=== PATIENT | male | born 1940 | race Caucasian/White ===

== ENCOUNTER 2022-06-17 16:21 | Inpatient (IN) | payer MEDICARE, SELFPAY ==
[2022-06-17] VITALS (9 sets, daily range): BP systolic 140–160; BP diastolic 36–79; PULSE 32–96; RESP 14–19; TEMP 36.6–36.8; O2SAT 95–100; BMI 26.4
--- NOTE | ~2022-06-17 | XR_ITS ---
EXAMINATION: XR chest 1V portable INDICATION: Pacemaker insertion TECHNIQUE: Portable AP chest at 1529 hours COMPARISON: 06/17/2022 FINDINGS: There has been interval insertion of a dual lead pacemaker into the left chest wall which e nds with its leads in expected positions. No pleural effusion or pneumothorax. There is mild atelecta sis of the left lung base. The cardiomediastinal silhouette is normal. IMPRESSION: 1. Left-sided pacemaker insertion without pneumothorax. Reviewed, dictated and finalized at location B.
--- NOTE | ~2022-06-17 | XR_ITS ---
EXAMINATION: XR chest 1V portable DATE: 06/17/2022 17:09 INDICATION: Bradycardia, shortness of breath and dizziness TECHNIQUE: frontal view of the chest was obtained. COMPARISON: None FINDINGS: Lordotic position with slight rightward rotation of the patient. No focal airspace opacities, pulmona ry edema, pleural effusion or pneumothorax. The cardiomediastinal silhouette is normal. Defibrillator pads project over the right upper chest and along the lateral left lower chest. IMPRESSION: 1. No acute cardiopulmonary disease. Reviewed, dictated and finalized at location A.
--- NOTE | ~2022-06-17 | XR_ITS ---
EXAMINATION: XR chest 2V DATE: 06/20/2022 14:39 INDICATION: Pacemaker insertion TECHNIQUE: Frontal and lateral views of the chest are obtained COMPARISON: 06/19/2022 FINDINGS: The lungs are free of acute opacities. No pleural effusion or pneumothorax. The cardiomedia stinal silhouette is normal. There is mild thoracic spondylosis. A dual-lead cardiac pacemaker of the left chest wall ends with leads in expected locations. IMPRESSION: 1. No acute cardiopulmonary abnormality. Reviewed, dictated and finalized at location L.
--- NOTE | 2022-06-17 16:42 | ECG_ITS ---
Measurements Intervals [place] Rate: 36 P: 92 [place]: 84 QRS: 76 QRSD: 133 T: -53 QT: 506 QTc: 393 Interpretive Statements 2:1 AV BLOCK INTRAVENTRICULAR CONDUCTION DELAY [130+ ms QRS DURATION] NO PREVIOUS ECG AVAILABLE FOR COMPARISON Electronically Signed On 06-18-2022 15:05:26 CDT by Leif Mckay M.D.
[2022-06-17 16:52] LABS: Basophils Absolute Auto 0.1 K/mm3 (0.0-0.1); Eosinophils Absolute Auto 0.2 K/mm3 (0-0.3); Eosinophils Percent Auto 3.5 % (0-4.4); Hematocrit 43.1 % (42.0-52.0); Immature Granulocyte Absolute 0.02 K/mm3 (0.00-0.031); Immature Granulocyte Percent A 0.3 % (0-0.5); Lymphocytes Absolute Auto 0.99 K/mm3 (0.9-3.2); Lymphocytes Percent Auto 16.6 % (18.3-44.2); Mean Corpuscular HGB Conc 32.5 g/dl (32-36); Mean Corpuscular Hemoglobin 30.7 pg (26-34); Mean Corpuscular Volume 94.5 fl (80-100); Mean Platelet Volume 10.7 fl (7.4-10.4); Monocytes Absolute Auto 0.6 K/mm3 (0.1-0.6); Monocytes Percent Auto 9.9 % (2.6-8.5); Neutrophils Absolute Auto 4.1 K/mm3 (1.3-6.7); Neutrophils Percent Auto 68.7 % (45.5-73.1); Platelet Count Result 146 k/mm3 (150-375); Red Blood Count 4.56 M/mm3 (4.6-6.20); Red Cell Distribution Width 13.9 % (11.5-14.5)
[2022-06-17 17:07] LABS: Alanine Aminotransferase 46 U/L (6-50); Albumin Level 3.9 g/dL (3.5-5.1); Alkaline Phosphatase 42 U/L (38-126); Anion Gap 5 mmol/L (8-16); Aspartate Amino Transferase 47 U/L (17-59); Bilirubin,Total 0.6 mg/dL (0.2-1.3); Blood Urea Nitrogen 33 mg/dL (9-20); Carbon Dioxide 30 mmol/L (22-30); Chloride 108 mmol/L (98-107); Estimated CRCL calculation 37 ml/min; Estimated Glomerular Filt Rate 53; Glucose 97 mg/dL (65-110); Lipase 179 U/L (23-300); Potassium 4.4 mmol/L (3.4-5.0); Sodium 143 mmol/L (137-145)
[2022-06-17 17:11] LABS: INR 1.1; Prothrombin Time 13.8 Seconds (11.1-14.7)
[2022-06-17 17:12] LABS: Partial Thromboplastin Time 24.5 SECONDS (22.3-36.8)
--- NOTE | 2022-06-17 17:16 | ED.ARRPALP ---
HPI - Arrhythmia/Palpitations General Chief Complaint: Arrhythmia/Palpitations Stated Complaint: slow HR Time Seen by Provider: 06/17/22 17:07 Source: patient and RN notes reviewed Mode of arrival: ambulatory Limitations: no limitations History of Present Illness HPI narrative: This is an 82 year old male with history of hypertension who presents for evaluation of bradycardia. He went to be evaluated by his PCP for dizziness and fatigue for past 24-48 hours . He reports he is dizzy with standing. He was found to have low HR so he was sent to ER. He denies chest pain, sob, nausea or vomting. He denies cardiac history. He denies change in medications. Related Data Home Medications Medication Instructions Recorded Confirmed aspirin 81 mg chewable tablet 81 mg PO DAILY 06/17/22 06/17/22 bupropion HCl 150 mg 24 hr tablet, 150 mg PO DAILY 06/17/22 06/17/22 extended release escitalopram oxalate 20 mg tablet 20 mg PO DAILY 06/17/22 06/17/22 hydrochlorothiazide 25 mg tablet 25 mg PO DAILY 06/17/22 06/17/22 meloxicam 15 mg tablet 15 mg PO DAILY PRN Pain 06/17/22 06/17/22 ramipril 10 mg capsule 10 mg PO DAILY 06/17/22 06/17/22 Allergies Allergy/AdvReac Type Severity Reaction Status Date / Time No Known Allergies Allergy Mild Verified 06/17/22 16:41 Review of Systems Constitutional: Constitutional: Reports weakness Cardiovascular: Cardiovascular: Denies syncope, Denies rapid heart rate, Denies irregular heart rhythm, Denies leg edema and Denies dyspnea Respiratory: Respiratory: Denies chest congestion, Denies hemoptysis, Denies excessive phlegm production and Denies dyspnea Gastrointestinal: Gastrointestinal: Denies abdominal pain, Denies hematochezia, Denies diarrhea and Denies vomiting Genitourinary: Genitourinary: Denies hematuria, Denies dysuria, Denies penile discharge and Denies testicular pain Musculoskeletal: Musculoskeletal: Denies joint swelling, Denies loss of height and Denies muscle weakness Neurologic: Reports dizziness, Denies syncope, Denies focal weakness and Denies weakness PMFSH Past Medical History Medical History Depression Essential hypertension Osteoarthritis Surgical History Surgical History History of right inguinal hernia repair Hx of tonsillectomy Family History Family History Other No significant family history Social History Social History Social History: The patient lives with his and is independent in all activities of daily living. They had been since 1962. They based 2 daughters. He smoked a pack of cigarettes per day but quit in 1972. He drinks 2 or 3 beers couple of times a week. Code status: Full code Surrogate decision maker: Smoking packs per day: 1 Smoking cigarettes per day: 20.0 Years smoked: 15 Smoking pack-years: 15.00 Smoking status: Former smoker Alcohol intake: current Drinks per week: 6 Alcohol use details: A couple of beers 2 or 3 times a week Substance use: never Lack of Transportation: No Lack of Food: Never True Current Housing: I Have Housing Concerned About Future Housing: No Difficulty Paying Gas/Electric Bills: No Difficulty Paying for Meds: No Currently Unemployed: No Education: Master's Degree or Higher Difficulty w/ Childcare or Family Care: No Spiritual care concerns: No Exam Const: General: no acute distress and alert Nutritional Appearance: well nourished Orientation/consciousness: patient oriented x3 HENMT: Face and sinus: normal facial exam Mouth: Yes Normal oral and palatal mucosa present Throat: posterior oropharynx normal and uvula midline Eyes: EOM: EOMs intact bilaterally Chest: Chest palpation & inspection: normal inspection of the
[2022-06-17 17:18] LABS: Troponin I < 0.012 ng/mL (0.000-0.034)
[2022-06-17] MEDS: ATROPINE SULFATE 1 MG/10 ML SYRINGE 0.5 MG IV PUSH (17:42)
--- NOTE | 2022-06-17 19:00 | ADMGEN ---
This patient, Jackeline Squires, was admitted to Intensive Care Unit-5. Patient/family oriented to hospital policies and general routines including ID bracelet, bed and alarms, visiting hours, pain management, procedures, bathroom and other care routines, personal items, smoking policy, room service/diet, and visiting hours. Information on how to activate the Rapid Response Team has been discussed. Patient/Family are encouraged to report perceived risks to care and to ask questions if they do not understand what they are told or what they should do.
--- NOTE | 2022-06-17 19:13 | ECG_ITS ---
Measurements Intervals [place] Rate: 31 P: 62 [place]: 194 QRS: -26 QRSD: 142 T: 75 QT: 520 QTc: 377 Interpretive Statements HIGH-DEGREE AV BLOCK LEFT BUNDLE BRANCH BLOCK [120+ ms QRS DURATION, 80+ ms Q/S IN V1/V2, 85+ ms R IN I/aVL/V5/V6] INTERPRETATION BASED ON A DEFAULT AGE OF 40 YEARS COMPARED TO ECG 06/17/2022 16:36:10 NO SIGNIFICANT CHANGES Electronically Signed On 06-18-2022 15:54:21 CDT by Leif Mckay M.D.
[2022-06-17 20:24] LABS: Troponin I < 0.012 ng/mL (0.000-0.034)
--- NOTE | 2022-06-17 21:04 | PM.IMHP ---
H&P: HPI History of Present Illness Date/Time: 06/17/22 21:04 Chief Complaint: Tired and dizzy Narrative: 82-year-old male with a past medical history of essential hypertension and depression who presented to the ER from his primary care physician's office due to bradycardia. The patient had chief complaint of feeling tired and dizzy since the . He reports that he and his went out shopping and he noticed that it took him more effort than usual to get her electric scooter off of the car. He felt tired enough that they finished shopping early and they were going to go home and take her usual nap. However they stopped at a flea market before they got home and he suddenly felt lightheaded and thought that he was going to pass out. He initially stated that he was dizzy but denies any true vertiginous symptoms. He states that he has never had symptoms like this before. He denies any chest pain, shortness of breath, orthopnea or palpitations. He went to see his primary care physician in they did an EKG and he directed him to go to the ER because his EKG was concerning for high-degree heart block. He is not on any AV lucius blocking agents. He is EKG in the ER demonstrated a third-degree heart block. Patient was subsequently admitted to the ICU for close monitoring and has external pacing pads in place. His heart rate is in the low 30s but blood pressures are stable. Besides feeling fatigued the patient is completely asymptomatic. While I was in the room the patient did briefly dropped down to a heart rate of 27. Review of Systems Review of Systems: 12 systems were reviewed with pertinent positives and negatives per HPI. Except as documented in the HPI, all other systems were reviewed and are negative. [facility] Past Medical History Medical History (Updated 06/17/22 @ 22:25 by Holley Fletcher DO) Depression Essential hypertension Osteoarthritis Surgical History Surgical History (Updated 06/17/22 @ 22:25 by Holley Fletcher DO) History of right inguinal hernia repair Hx of tonsillectomy Family History Family History Other No significant family history Social History Social History (Updated 06/17/22 @ 22:38 by Holley Fletcher DO) Social History: The patient lives with his and is independent in all activities of daily living. They had been since 1962. They based 2 daughters. He smoked a pack of cigarettes per day but quit in 1972. He drinks 2 or 3 beers couple of times a week. Code status: Full code Surrogate decision maker: Smoking packs per day: 1 Smoking cigarettes per day: 20.0 Years smoked: 15 Smoking pack-years: 15.00 Smoking status: Former smoker Alcohol intake: current Drinks per week: 6 Alcohol use details: A couple of beers 2 or 3 times a week Substance use: never Lack of Transportation: No Lack of Food: Never True Current Housing: I Have Housing Concerned About Future Housing: No Difficulty Paying Gas/Electric Bills: No Difficulty Paying for Meds: No Currently Unemployed: No Education: Master's Degree or Higher Difficulty w/ Childcare or Family Care: No Spiritual care concerns: No Meds Home Medications and Allergies Home Medications Medication Instructions Recorded Confirmed Type aspirin 81 mg chewable tablet 81 mg PO DAILY 06/17/22 06/17/22 History bupropion HCl 150 mg 24 hr tablet, 150 mg PO DAILY 06/17/22 06/17/22 History extended release escitalopram oxalate 20 mg tablet 20 mg PO DAILY 06/17/22 06/17/22 History hydrochlorothiazide 25 mg tablet 25 mg PO DAILY 06/17/22 06/17/22 History meloxicam 15 mg tablet 15 mg PO DAILY PRN Pain 06/17/22 06/17/22 History ramipril 10 mg capsule 10 mg PO DAILY 06/17/22 06/17/22 History Allergies Allergy/AdvReac Type Severity Reaction Status Date / Time No Known Allergies Allergy Mild Verified 06/17/22 16:41 Vital
[2022-06-17 23:09] LABS: Troponin I < 0.012 ng/mL (0.000-0.034)
[2022-06-18] VITALS (15 sets, daily range): BP systolic 114–154; BP diastolic 34–116; PULSE 28–42; RESP 10–21; TEMP 36.6–36.9; O2SAT 94–100
--- NOTE | 2022-06-18 | ECHO_ITS ---
Patient Info Name: Jackeline Squires Age: 82 years : 1940 Gender: Male Ht: 67 in Wt: 169 lbs BSA: 1.92 m2 HR: 30 bpm BP: 146 / 51 mmHg Heart Rhythm: Bradycardia Technical Quality: Fair Exam Date: 06/18/2022 7:49 AM Exam Location: [facility] Patient Status: Outpatient Admit Date: 06/17/2022 Staff Ordering Physician: Holley Fletcher DO Wire Splicer: Olivia Reyes RDCS Attending Provider: Beata Wick DO Referring Physician: Chance SORTO; Exam Type: CA echo dop color flow w con Study Info Indications - Third-degree heart block Complete two-dimensional, color flow and Doppler transthoracic echocardiogram is performed with contrast to opacify the left ventricle and to improve the deliniation of the left ventricle endocardial borders. Contrast/Agitated Saline Contrast/Ag. Saline: Definity Amount: 3.00 ml Administered By: Olivia Reyes RDCS Existing IV Access: Yes IV Access Condition: patent with no signs of infiltration Summary 1. Left ventricular chamber dimension is normal. 2. Left ventricular systolic function is normal, estimated at 60-65%. 3. The left ventricular diastolic function is grade I diastolic dysfunction. 4. Right ventricular systolic function is normal. 5. There is mild aortic valve sclerosis. 6. There is mild aortic valve regurgitation. 7. There is mild to moderate mitral valve regurgitation. 8. There is moderate tricuspid valve regurgitation. 9. There is mild pulmonic regurgitation. 10. Pulmonary hypertension, estimated pulmonary arterial systolic pressure is 53 mmHg. Left Ventricle Left ventricular chamber dimension is normal. Left ventricular systolic function is normal, estimated at 60-65%. There is no increased left ventricular wall thickness. The left ventricular diastolic function is grade I diastolic dysfunction. Right Ventricle Right ventricular chamber dimension is normal. Right ventricular systolic function is normal. Left Atria Left atrial chamber dimension is normal. Right Atria Right atrial chamber dimension is normal. Atrial Septum Intact interatrial septum visualized by color flow imaging. Aortic Valve The aortic valve is trileaflet. There is mild aortic valve sclerosis. There is no aortic valve stenosis. There is mild aortic valve regurgitation. Pulmonic Valve The pulmonic valve is not well visualized. There is mild pulmonic regurgitation. Mitral Valve The mitral valve has normal leaflets. There is no mitral valve stenosis. There is mild to moderate mitral valve regurgitation. Tricuspid Valve There is moderate tricuspid valve regurgitation. Pulmonary hypertension, estimated pulmonary arterial systolic pressure is 53 mmHg. Pericardium/Pleural The pericardium appears epicardial fat pad. Inferior Vena Cava Dilated inferior vena cava with >50% collapse upon inspiration consistent with elevated right atrial pressure, 8 mmHg. Aorta The aortic root size at the sinus of Valsalva is normal. Left Ventricular Outflow Tract Name Value Normal LVOT 2D LVOT Diameter 1.89 cm LVOT Doppler
[2022-06-18] MEDS: PERFLUTREN LIPID MICROSPHERES 1.5 ML VIAL DILUTED TO 10 ML TOTAL VOLUME IV PUSH (08:00)
--- NOTE | 2022-06-18 08:33 | WPDCNINT ---
Assessment and Plan Assessment and plan (1) AV heart block: Code(s): I44.30 - Unspecified atrioventricular block Status: Acute Assessment and Plan: EKG reviewed and patient appears to have second-degree type 2 heart block with every 2nd beat not conducting.. Clearly he presented with symptoms but his blood pressure is adequate at this time. Continue ICU school bus monitor. Transcutaneous pacing pads are in place but he has not required any pacing till now. Electrolytes were unremarkable and he had no response to atropine Cardiology has been consulted and plan to place a pacemaker Troponins negative TSH normal Echo is ordered (2) Essential hypertension: Code(s): I10 - Essential (primary) hypertension Status: Acute Assessment and Plan: Continue ramipril. Add p.r.n. hydralazine Resume hydrochlorothiazide from tomorrow Plan DVT prophylaxis - SCDs Nutrition -NPO Code Status - Full Code Coil Cutter Consult Note Consult date: 06/18/22 Reason for consult: Bradycardia, heart block HPI: Jackeline Squires is a 82 year old male with a past medical history of essential hypertension and depression who presented to the ER yesterday from his primary care physician's office due to bradycardia.? The patient had chief complaint of feeling tired and dizzy since the 06/16.? He reported that he and his went out shopping and he noticed that it took him more effort than usual to get her electric scooter off of the car.? He felt tired enough that they finished shopping early and they were going to go home and take her usual nap.? He also had episode where he he suddenly felt lightheaded and thought that he was going to pass out.? He denied any chest pain, shortness of breath, orthopnea or palpitations.? He went to see his primary care physician in they did an EKG and he directed him to go to the ER because his EKG was concerning for high-degree heart block.? He is not on any AV lucius blocking agents.? He is EKG in the ER demonstrated a third-degree heart block.? Patient was subsequently admitted to the ICU for close monitoring and has external pacing pads in place.? Although he was bradycardic his blood pressure was elevated and he did not require any pacing. Cardiology was consulted At this time patient states that he does not have any symptoms at this time and feels fine while in bed. He confirmed similar history to me and stated that he had only 1 episode where he felt he was going to pass and was been feeling weak and tired for last couple of days. Denies any chest pain shortness of breath nausea vomiting abdominal pain blurring or loss of vision. All other systems were reviewed and were negative Review of Systems Review of Systems: All systems reviewed & are unremarkable except as noted in HPI and below (HPI) [facility] Past Medical History Medical History Depression Essential hypertension Osteoarthritis Surgical History Surgical History History of right inguinal hernia repair Hx of tonsillectomy Family History Family History Other No significant family history Social History Social History Social History: The patient lives with his and is independent in all activities of daily living. They had been since 1962. They based 2 daughters. He smoked a pack of cigarettes per day but quit in 1972. He drinks 2 or 3 beers couple of times a week. Code status: Full code Surrogate decision maker: Smoking packs per day: 1 Smoking cigarettes per day: 20.0 Years smoked: 15 Smoking pack-years: 15.00 Smoking status: Former smoker Alcohol intake: current Drinks per week: 6 Alcohol use details: A couple of beers 2 or 3 times a week Substance use: never Lack of T
--- NOTE | 2022-06-18 08:41 | IVDEFINITY ---
Prior to administration of IV Definity the patient was educated on the risks and benefits of the imaging enhancing agent including potential adverse side effects. The patient verbalized understanding. Allergies were verified. No exclusion criteria were identified and at least one of the following inclusion criteria were met: 1) physician request, 2) patient technically difficult to image (per the [place] [employer] guidelines of two or more segments not discernable within the apical view), or 3) questionable left ventricular function. ?
[2022-06-18] MEDS: ESCITALOPRAM OXALATE 10 MG TABLET 20 MG PO (08:48)
[2022-06-18] MEDS: buPROPion HCL XL (24 HR) 150 MG TABCR PO (08:48)
[2022-06-18] MEDS: ASPIRIN 81 MG CHEWABLE TABLET PO (08:50)
[2022-06-18] MEDS: ramipriL 5 MG CAPSULE 10 MG PO (11:08)
--- NOTE | 2022-06-18 12:56 | ECG_ITS ---
Measurements Intervals [place] Rate: 32 P: [place]: 0 QRS: -51 QRSD: 136 T: 37 QT: 528 QTc: 389 Interpretive Statements SINUS RHYTHM WITH HIGH GRADE AV BLOCK RIGHT BUNDLE BRANCH BLOCK [120+ ms QRS DURATION, UPRIGHT V1, 40+ ms S IN I/aVL/V4/V5/V6] LEFT ANTERIOR FASCICULAR BLOCK [QRS AXIS <= -45, QR IN I, RS IN II] COMPARED TO ECG 06/17/2022 19:10:46 RIGHT BUNDLE-BRANCH BLOCK MORPHOLOGY NOW PRESENT Electronically Signed On 06-18-2022 16:12:28 CDT by Leif Mckay M.D.
--- NOTE | 2022-06-18 14:00 | PM.IMPN ---
Progress Note: A&P Assessment and Plan (1) Third degree heart block: Code(s): I44.2 - Atrioventricular block, complete Status: Acute Assessment and Plan: Symptomatic third-degree heart heart rates for the most part in the low to mid 30s but occasionally drop the the low 20s but not a sustained rate. His lungs patient is resting he is relatively asymptomatic. Pacer pads are in place. Cardiology and director of informatics have been consulted. Will provide atropine at bedside. 06/18/2022 interval history: 82-year-old presented with complaint dizziness being tired is found to have a symptomatic bradycardia patient is not on any AV nod blocking agent, currently patient is clinically stable patient will be seen sld teacher and may need a pacemaker, will continue to monitor and further recommendation to follow (2) Essential hypertension: Code(s): I10 - Essential (primary) hypertension Status: Acute Assessment and Plan: Will continue the patient's home KEVIN-inhibitor and hydrochlorothiazide. Blood pressures are stable Plan Patient has been admitted as observation status. Subjective Date/time seen: 06/18/22 14:00 Tired and dizzy HPI-Narrative: 82-year-old male with a past medical history of essential hypertension and depression who presented to the ER from his primary care physician's office due to bradycardia.? The patient had chief complaint of feeling tired and dizzy since the .? He reports that he and his went out shopping and he noticed that it took him more effort than usual to get her electric scooter off of the car.? He felt tired enough that they finished shopping early and they were going to go home and take her usual nap.? However they stopped at a flea market before they got home and he suddenly felt lightheaded and thought that he was going to pass out.? He initially stated that he was dizzy but denies any true vertiginous symptoms.? He states that he has never had symptoms like this before.? He denies any chest pain, shortness of breath, orthopnea or palpitations.? He went to see his primary care physician in they did an EKG and he directed him to go to the ER because his EKG was concerning for high-degree heart block.? He is not on any AV lucius blocking agents.? He is EKG in the ER demonstrated a third-degree heart block.? Patient was subsequently admitted to the ICU for close monitoring and has external pacing pads in place.? His heart rate is in the low 30s but blood pressures are stable.? Besides feeling fatigued the patient is completely asymptomatic.? While I was in the room the patient did briefly dropped down to a heart rate of 27. 06/18/2022 interval history: 82-year-old presented with complaint dizziness being tired is found to have a symptomatic bradycardia patient is not on any AV nod blocking agent, currently patient is clinically stable patient will be seen sld teacher and may need a pacemaker, will continue to monitor and further recommendation to follow Review of Systems Review of Systems: All systems reviewed & are unremarkable except as noted in HPI and below (HPI) Exam Narrative: Moderately obese Patient is comfortable, NAD HEENT: eyes are clear and none icteric LUNGS: Normal respiratory effort ABD: Not distended Lower extremities: no edema SKIN: nonjaundiced Neuro: grossly intact. Objective Data Vital Signs Vital Signs: Vital Signs - 24 hr 06/17/22 16:25 06/17/22 16:41 06/17/22 17:19 Temperature 97.8 F Pulse Rate 37 L 96 35 L Respiratory Rate 16 15 Blood Pressure 160/36 H 155/48 H Pulse Oximetry 99 97 Oxygen Delivery Room Air 06/17/22 17:45 06/17/22 18:19 06/17/22 18:42 Temperature Pulse Rate 37 L 43 L 45 L Respiratory Rate 14 18 19 Blood Pressure 140/52 L 149/53 H Pulse Oximetry 100 98 100 Oxygen Delivery 06/17/22 18:52 06/17/22 19:44 06/17/22 20:00 Temperature Pulse Rate 40 L 39 L Respiratory Rate 17 Bloo
--- NOTE | 2022-06-18 15:40 | PM.CNCAR ---
Assessment and Plan Assessment and plan (1) AV heart block: Code(s): I44.30 - Unspecified atrioventricular block Status: Acute Assessment and Plan: Presenting with complaints of dizziness and near syncope as well as increased fatigue over the past couple of weeks. his EKG demonstrates 2:1 AVB with LBBB. A follow-up EKG continues to show the 2:1 AVB with RBBB. His heart rate is generally in the low 30s. His blood pressure is stable with this. Because of this high degree block and associated symptoms, I have recommended placement of a permanent pacemaker. This will take place tomorrow with Dr. Rodgers. I reviewed potential risks and complications of the procedure with the patient and family at bedside. They verbalized understanding and wished to proceed with placement of a permanent pacemaker. Echocardiogram shows normal LV systolic function with an EF of 60-65%, grade 1 diastolic dysfunction, moderate MR, moderate TR, pulmonary hypertension with estimated PASP 53 mmHg. History of Present Illness History of Present Illness Consult date/time: 06/18/22 15:40 Reason For Visit: Symptomatic Bradycardia Narrative: Mr. Squires is an 82-year-old male with a history of hypertension. This is a patient who presented to the hospital with a chief complaint of light headness/ near syncope. He states that he has been feeling more fatigued than usual for a couple of weeks but on Friday when he was out shopping he began to feel lightheaded and as if he might pass out. He did not have syncope. prior to this episode on Friday he had not had any syncope or presyncope. He denies any cardiac history. He denies having any chest pain, palpitations, shortness of breath, swelling. Currently, he is resting comfortably in bed in the ICU and his telemetry is demonstrating 2:1 AV block. Review of Systems Review of Systems: All systems reviewed & are unremarkable except as noted in HPI and below PMFSH Past Medical History Medical History Depression Essential hypertension Osteoarthritis Surgical History Surgical History History of right inguinal hernia repair Hx of tonsillectomy Family History Family History Other No significant family history Social History Social History Social History: The patient lives with his and is independent in all activities of daily living. They had been since 1962. They based 2 daughters. He smoked a pack of cigarettes per day but quit in 1972. He drinks 2 or 3 beers couple of times a week. Code status: Full code Surrogate decision maker: Smoking packs per day: 1 Smoking cigarettes per day: 20.0 Years smoked: 15 Smoking pack-years: 15.00 Smoking status: Former smoker Alcohol intake: current Drinks per week: 6 Alcohol use details: A couple of beers 2 or 3 times a week Substance use: never Lack of Transportation: No Lack of Food: Never True Current Housing: I Have Housing Concerned About Future Housing: No Difficulty Paying Gas/Electric Bills: No Difficulty Paying for Meds: No Currently Unemployed: No Education: Master's Degree or Higher Difficulty w/ Childcare or Family Care: No Spiritual care concerns: No Meds Home Medications and Allergies Home Medications Medication Instructions Recorded Confirmed Type aspirin 81 mg chewable tablet 81 mg PO DAILY 06/17/22 06/17/22 History bupropion HCl 150 mg 24 hr tablet, 150 mg PO DAILY 06/17/22 06/17/22 History extended release escitalopram oxalate 20 mg tablet 20 mg PO DAILY 06/17/22 06/17/22 History hydrochlorothiazide 25 mg tablet 25 mg PO DAILY 06/17/22 06/17/22 History meloxicam 15 mg tablet 15 mg PO DAILY PRN Pain 06/17/22 06/17/22 Histor
[2022-06-19] VITALS (20 sets, daily range): BP systolic 105–169; BP diastolic 52–109; PULSE 32–72; RESP 11–19; TEMP 36.6–37.1; O2SAT 92–99
--- NOTE | 2022-06-19 06:46 | WPDMODSED ---
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 Present Complaint: None Procedure to be performed/Plan: Implantation of permanent pacemaker Allergies Allergy/AdvReac Type Severity Reaction Status Date / Time No Known Allergies Allergy Mild Verified 06/17/22 16:41 Home Medications Medication Instructions Recorded Confirmed Type aspirin 81 mg chewable tablet 81 mg PO DAILY 06/17/22 06/17/22 History bupropion HCl 150 mg 24 hr tablet, 150 mg PO DAILY 06/17/22 06/17/22 History extended release escitalopram oxalate 20 mg tablet 20 mg PO DAILY 06/17/22 06/17/22 History hydrochlorothiazide 25 mg tablet 25 mg PO DAILY 06/17/22 06/17/22 History meloxicam 15 mg tablet 15 mg PO DAILY PRN Pain 06/17/22 06/17/22 History ramipril 10 mg capsule 10 mg PO DAILY 06/17/22 06/17/22 History Current Medications: Active Medications Aspirin (Aspirin 81 Mg Chewable Tablet) 81 mg PO DAILY [facility] Last Admin: 06/18/22 08:50 Dose: 81 mg Atropine Sulfate (Atropine Sulfate 1 Mg/10 Ml Syringe) 1 mg IV PUSH PRN PRN PRN Reason: prn Symptomatic bradycardia Bupropion HCl (Bupropion Hcl Xl (24 Hr) 150 Mg Tabcr) 150 mg PO DAILY [facility] Last Admin: 06/18/22 08:48 Dose: 150 mg Escitalopram Oxalate (Escitalopram Oxalate 10 Mg Tablet) 20 mg PO DAILY [facility] Last Admin: 06/18/22 08:48 Dose: 20 mg Hydralazine HCl (Hydralazine Hcl 20 Mg/Ml Vial) 10 mg IV PUSH Q4H PRN PRN Reason: SBP more than 160 Meloxicam (Meloxicam 7.5 Mg Tablet) 15 mg PO DAILY PRN PRN Reason: Pain Ramipril (Ramipril 5 Mg Capsule) 10 mg PO DAILY [facility] Last Admin: 06/18/22 11:08 Dose: 10 mg Sedation/Anesthesia: No previous sedation/anesthesia problems (including family history). [facility] Past Medical History Medical History Depression Essential hypertension Osteoarthritis Surgical History Surgical History History of right inguinal hernia repair Hx of tonsillectomy Family History Family History Other No significant family history Social History Social History Social History: The patient lives with his and is independent in all activities of daily living. They had been since 1962. They based 2 daughters. He smoked a pack of cigarettes per day but quit in 1972. He drinks 2 or 3 beers couple of times a week. Code status: Full code Surrogate decision maker: Smoking packs per day: 1 Smoking cigarettes per day: 20.0 Years smoked: 15 Smoking pack-years: 15.00 Smoking status: Former smoker Alcohol intake: current Drinks per week: 6 Alcohol use details: A couple of beers 2 or 3 times a week Substance use: never Lack of Transportation: No Lack of Food: Never True Current Housing: I Have Housing Concerned About Future Housing: No Difficulty Paying Gas/Electric Bills: No Difficulty Paying for Meds: No Currently Unemployed: No Education: Master's Degree or Higher Difficulty w/ Childcare or Family Care: No Spiritual care concerns: No Mod Sed Physical Exam Physical Exam Pre Procedural Exam: Normal: Appearance, Nose, Neck, Throat, Airway, Lungs, Heart Size, Neuro Exam and Extremities and Variation: Heart Rate (Bradycardic ) and Heart Rhythm Hours since solid foods: 12 Hours since liquid intake: 12 Mallampati Classification: class II Internal Medicine - PN: Obj Da Vital Signs Vital Signs: Vital Signs - 24 hr 06/18/22 08:00 06/18/22 08:00 06/18/22 08:00 Temperature Pulse Rate 28 L 42 L Respiratory Rate 12 Blood Pressure 150/47 H Pulse Oximetry 96 Oxygen Delivery Room Air 06/18/22 10:00 06/18/22 10:34 06/18/22 12:00 Temperature Pulse Rate 42 L 42 L 31 L Respiratory Rate 15 Blood Press
[2022-06-19 06:58] LABS: Hematocrit 40.8 % (42.0-52.0); Hemoglobin 13.6 g/dL (14.0-18.0); Mean Corpuscular HGB Conc 33.3 g/dl (32-36); Mean Corpuscular Hemoglobin 31.3 pg (26-34); Mean Corpuscular Volume 93.8 fl (80-100); Mean Platelet Volume 10.8 fl (7.4-10.4); Platelet Count Result 137 k/mm3 (150-375); Red Blood Count 4.35 M/mm3 (4.6-6.20); Red Cell Distribution Width 13.4 % (11.5-14.5); White Blood Count 8.3 K/mm3 (4.5-10.0)
[2022-06-19 07:12] LABS: Anion Gap 6 mmol/L (8-16); Blood Urea Nitrogen 26 mg/dL (9-20); Calcium 8.6 mg/dL (8.4-10.2); Carbon Dioxide 25 mmol/L (22-30); Chloride 108 mmol/L (98-107); Estimated CRCL calculation 48 ml/min; Estimated Glomerular Filt Rate > 60; Glucose 97 mg/dL (65-110); Potassium 4.2 mmol/L (3.4-5.0); Sodium 139 mmol/L (137-145)
[2022-06-19] MEDS: hydroCHLOROthiazide 25 MG TABLET PO (08:02)
[2022-06-19] MEDS: buPROPion HCL XL (24 HR) 150 MG TABCR PO (08:02)
[2022-06-19] MEDS: ESCITALOPRAM OXALATE 10 MG TABLET 20 MG PO (08:02)
[2022-06-19] MEDS: ramipriL 5 MG CAPSULE 10 MG PO (08:02)
[2022-06-19] MEDS: ASPIRIN 81 MG CHEWABLE TABLET PO (08:04)
--- NOTE | 2022-06-19 08:16 | WPDINTPN ---
Progress Note: A&P Assessment and Plan (1) AV heart block: Code(s): I44.30 - Unspecified atrioventricular block Status: Acute Assessment and Plan: Symptomatic 2:1 AV block with stable blood pressure Continue ICU monitor tech. Transcutaneous pacing pads are in place but he has not required any pacing till now. Electrolytes were unremarkable and he had no response to atropine Cardiology is following and plan to place a pacemaker today Troponins negative TSH normal Echo Summary ? 1. Left ventricular chamber dimension is normal. ? 2. Left ventricular systolic function is normal, estimated at 60-65%. ? 3. The left ventricular diastolic function is grade I diastolic dysfunction. ? 4. Right ventricular systolic function is normal. ? 5. There is mild aortic valve sclerosis. ? 6. There is mild aortic valve regurgitation. ? 7. There is mild to moderate mitral valve regurgitation. ? 8. There is moderate tricuspid valve regurgitation. ? 9. There is mild pulmonic regurgitation. ? 10. Pulmonary hypertension, estimated pulmonary arterial systolic pressure is 53 mmHg. (2) Essential hypertension: Code(s): I10 - Essential (primary) hypertension Status: Acute Assessment and Plan: Continue ramipril and hydrochlorothiazide. Add p.r.n. hydralazine Echo as above Plan DVT prophylaxis - SCDs Nutrition -NPO Code Status - Full Code Subjective Date/time seen: 06/19/22 Overnight events reviewed. Afebrile Continues to be bradycardic but with elevated blood pressure No new complaints. All systems were reviewed and were negative Other Vitals acceptable Review of Systems Review of Systems: All systems reviewed & are unremarkable except as noted in HPI and below (HPI) Exam Narrative: General: Pt is alert awake and in NAD Lungs/Chest: Trachea central Clear BS B/L, No crackles or wheezing. Cardiac: Bradycardia, Normal S1 S2. No murmurs Circulation: Pedal pulses are intact and symmetrical. Abdomen: Normal bowel sounds.. Soft. NT. ND. Extremities: No clubbing, cyanosis or edema. Warm : Ga[place] in place Neurologic: Follows commands. Moves all 4 extremities PERRL AO x3 Skin: No Rash Objective Data Vital Signs Vital Signs: Vital Signs - 24 hr 06/18/22 10:00 06/18/22 10:34 06/18/22 12:00 Temperature Pulse Rate 42 L 42 L 31 L Respiratory Rate 15 Blood Pressure 147/55 H Pulse Oximetry 98 Oxygen Delivery 06/18/22 12:00 06/18/22 12:00 06/18/22 14:00 Temperature 36.6 C Pulse Rate 39 L 39 L Respiratory Rate 17 Blood Pressure 154/60 H Pulse Oximetry 96 Oxygen Delivery Room Air 06/18/22 14:00 06/18/22 15:48 06/18/22 16:00 Temperature Pulse Rate 37 L 38 L Respiratory Rate 19 Blood Pressure 132/80 Pulse Oximetry 96 Oxygen Delivery Room Air 06/18/22 16:00 06/18/22 18:00 06/18/22 18:00 Temperature 36.8 C Pulse Rate 34 L 39 L 39 L Respiratory Rate 18 21 H Blood Pressure 127/34 L 120/90 Pulse Oximetry 94 96 Oxygen Delivery 06/18/22 19:36 06/18/22 20:00 06/18/22 20:00 Temperature 36.9 C Pulse Rate 40 L 36 L 37 L Respiratory Rate 21 H 13 Blood Pressure 114/88 Pulse Oximetry 95 97 Oxygen Delivery Room Air 06/18/22 22:00 06/18/22 22:00 06/19/22 00:00 Temperature Pulse Rate 39 L 40 L 43 L Respiratory Rate 18 17 Blood Pressure 135/41 L Pulse Oximetry 97 92 Oxygen Delivery Room Air 06/19/22 00:00 06/19/22 00:00 06/19/22 02:00 Temperature 36.9 C Pulse Rate 43 L 42 L 43 L Respiratory Rate 18 Blood Pressure 138/94 H Pulse Oximetry 93 Oxygen Delivery 06/19/22 02:00 06/19/22 03:22 06/19/22 04:00 Temperature 36.9 C Pulse Rate 43 L 38 L 39 L Respiratory Rate 18 16 13 Blood Pressure 113/87 141/62 H Pulse Oximetry 95 94 95 Oxygen Delivery Room Air 06/19/22 04:00 06/19/22 06:00 06/19/22 06:00 Temperature Pulse Rate 33 L 32 L 36 L Respiratory Rate 15 Blood Pressure 16
--- NOTE | 2022-06-19 11:00 | ECG_ITS ---
Measurements Intervals [place] Rate: 38 P: UT: 0 QRS: -32 QRSD: 142 T: 110 QT: 544 QTc: 433 Interpretive Statements SINUS BRADYCARDIA WITH 2ND DEGREE AV BLOCK, MOBITZ TYPE II MARKED LEFT AXIS DEVIATION [QRS AXIS < -30] LEFT BUNDLE BRANCH BLOCK [120+ ms QRS DURATION, 80+ ms Q/S IN V1/V2, 85+ ms R IN I/aVL/V5/V6] ABNORMAL ECG COMPARED TO ECG 06/18/2022 13:05:09 SINUS BRADYCARDIA NOW PRESENT LEFT-AXIS DEVIATION NOW PRESENT LEFT BUNDLE-BRANCH BLOCK NOW PRESENT Electronically Signed On 06-19-2022 13:54:14 CDT by Luigi Feliz M.D.
[2022-06-19] MEDS: ceFAZolin 1 GM/NS 50 ML 1 GM/50 ML BAG IVPB ×2 (13:38→20:55)
--- NOTE | 2022-06-19 13:49 | PM.IMPN ---
Progress Note: A&P Assessment and Plan (1) Third degree heart block: Code(s): I44.2 - Atrioventricular block, complete Status: Acute Assessment and Plan: Symptomatic third-degree heart heart rates for the most part in the low to mid 30s but occasionally drop the the low 20s but not a sustained rate. His lungs patient is resting he is relatively asymptomatic. Pacer pads are in place. Cardiology and box toe cutter have been consulted. Will provide atropine at bedside. 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 Blood pressures are stable Plan Patient has been admitted as observation status. Subjective Date/time seen: 06/19/22 13:49 Symptomatic third-degree heart heart rates for the most part in the low to mid 30s but occasionally drop the the low 20s but not a sustained rate. His lungs patient is resting he is relatively asymptomatic. Pacer pads are in place. Cardiology and box toe cutter have been consulted. Will provide atropine at bedside. 06/19/2022 interval history: 82-year-old presented with complaint dizziness being tired is found to have a symptomatic bradycardia patient is not on any AV nod blocking agent, currently patient is clinically stable patient is seen mails supervisor and scheduled to have pacemaker pacemaker later today, will continue to monitor and further recommendation to follow Review of Systems Review of Systems: All systems reviewed & are unremarkable except as noted in HPI and below (HPI) Exam Narrative: Moderately obese Patient is comfortable, NAD HEENT: eyes are clear and none icteric LUNGS: Normal respiratory effort ABD: Not distended Lower extremities: no edema SKIN: nonjaundiced Neuro: grossly intact. Objective Data Vital Signs Vital Signs: Vital Signs - 24 hr 06/18/22 14:00 06/18/22 14:00 06/18/22 15:48 Temperature Pulse Rate 39 L 37 L Respiratory Rate 19 Blood Pressure 132/80 Pulse Oximetry 96 Oxygen Delivery Room Air 06/18/22 16:00 06/18/22 16:00 06/18/22 18:00 Temperature 98.3 F Pulse Rate 38 L 34 L 39 L Respiratory Rate 18 Blood Pressure 127/34 L Pulse Oximetry 94 Oxygen Delivery 06/18/22 18:00 06/18/22 19:36 06/18/22 20:00 Temperature 98.4 F Pulse Rate 39 L 40 L 36 L Respiratory Rate 21 H 21 H 13 Blood Pressure 120/90 114/88 Pulse Oximetry 96 95 97 Oxygen Delivery Room Air 06/18/22 20:00 06/18/22 22:00 06/18/22 22:00 Temperature Pulse Rate 37 L 39 L 40 L Respiratory Rate 18 Blood Pressure 135/41 L Pulse Oximetry 97 Oxygen Delivery 06/19/22 00:00 06/19/22 00:00 06/19/22 00:00 Temperature 98.5 F Pulse Rate 43 L 43 L 42 L Respiratory Rate 17 18 Blood Pressure 138/94 H Pulse Oximetry 92 93 Oxygen Delivery Room Air 06/19/22 02:00 06/19/22 02:00 06/19/22 03:22 Temperature Pulse Rate 43 L 43 L 38 L Respiratory Rate 18 16 Blood Pressure 113/87 Pulse Oximetry 95 94 Oxygen Delivery Room Air 06/19/22 04:00 06/19/22 04:00 06/19/22 06:00 Temperature 98.5 F Pulse Rate 39 L 33 L 32 L Respiratory Rate 13 Blood Pressure 141/62 H Pulse Oximetry 95 Oxygen Delivery 06/19/22 06:00 06/19/22 07:37 06/19/22 08:00 Temperature 97.9 F Pulse Rate 36 L 33 L Respiratory Rate 15 15 Blood Pressure 169/56 H 156/60 H Pulse Oximetry 96 95 96 Oxygen Delivery Room Air 06/19/22 09:32 06/19/22 08:00 06/19/22 10:00 Temperature Pulse
--- NOTE | 2022-06-19 14:49 | ECG_ITS ---
Measurements Intervals [place] Rate: 66 P: 159 AR: 174 QRS: -62 QRSD: 158 T: 84 QT: 464 QTc: 487 Interpretive Statements ELECTRONIC ATRIAL PACEMAKER ELECTRONIC VENTRICULAR PACEMAKER COMPARED TO ECG 06/19/2022 12:30:31 PACED RHYTHM NOW PRESENT Electronically Signed On 06-19-2022 16:16:10 CDT by Leif Mckay M.D.
--- NOTE | 2022-06-19 14:51 | WPDCARDPROC ---
Cardiac Cath Procedure Note Date of procedure:: 06/19/22 Performing physician:: Modesto Rodgers MD Indication:: High-grade AV block with trifascicular disease Brief clinical history:: This is an 82-year-old man with symptomatic bradycardia he has evidence of high-grade AV block including some evidence of 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 Procedure Procedure performed:: Implantation of permanent dual-chamber pacemaker Sedation/Medication given:: Fentanyl 50 mg Versed 2 mg Access site:: Left anterior chest wall left subcu Estimated blood loss:: 25 CC Procedure note:: Patient was brought to the cardiac catheterization lab in the postabsorptive state where the left anterior chest wall was prepped and draped in the usual fashion. Anesthesia was infiltrated with 1% lidocaine a below the clavicle. Following this an incision was made from the midclavicular line to the deltopectoral groove about 1 in below the clavicle. The patient had electrocautery used to provide cutaneous hemostasis. Using sharp and blunt dissection the subcutaneous tissue was dissected to the level of the prepectoral fascia. Using blunt dissection a pacemaker pocket was then created inferior to the incision. This was packed with antibiotic soaked 4 x 4. Attention was then turned to venous access. Using the [address] [employer] SafeSheath the insertion gets the subclavian vein was punctured twice and the J wires worse placed into the venous circulation under fluoroscopic visualization to the level of the right atrium. Using [address] [employer] safe sheaths the pacemaker leads placed described below were placed into the venous circulation to the right atrial level. Attention was then turned to placing the ventricular lead. I withdrew the stylet used a 3 cc syringe to fashion a J-tip on the stylet. This was directed across the tricuspid valve annulus and then a straight stylet was used to direct the lead straight out to the right ventricular apex. Because of the high-grade trifascicular disease I did not wish to traverse the RV outflow tract and avoid the conduction system. The lead was positioned to the apex the fixation screw was deployed appropriate pacing and sensing performance was demonstrated. A 10 volt stimulation showed no evidence of extracardiac stimulation. Following this attention was turned to the atrial lead. The straight stylet was withdrawn and a preformed atrial J was placed into the lead it was placed into the right atrial appendage and the fixation screw was then deployed. Upon withdrawal of the stylet the tip was fixed into the appendage. Using the analyzer appropriate pacing and sensing performance was demonstrated and again a 10 volt stimulation showed no evidence of extracardiac stimulation. Following this the retained sponge was removed the leads were secured to the base of the pocket using the suture sleeves and 2-0 silk ties. Following this the pocket was irrigated with antibiotic infused saline. The pacemaker generator was then connected to the leads using the torque wrench and the entire assembly was placed into the newly created pocket. This was closed in layers using 3-0 Vicryl in an interrupted fashion for the subcutaneous tissue and 4-0 Vicryl in a running subcuticular fashion for the skin. This was then dressed with an Aquacel dressing. Postop analgesics and antibiotics were ordered as well as chest x-ray and ECG. The patient tolerated procedure well there were no apparent complications. Findings:: The patient received a Biotronik permanent dual-chamber pacemaker model Edora [id number]. Serial number [id number]. Device is programmed in the DDD CLS mode lower rate limit 60 upper rate limit 120. The atrial lead is a active fixation of a Biotronik bipolar lead model Solia [id number]. Serial number [id number]. The P-waves are sensed at 2.1 mV threshold 0.9 volt at 0.4 millisecond impedance 50802 Ohms The ventricular le
[2022-06-19] MEDS: SODIUM CHLORIDE 0.9% IV 1,000 ML 50 ML IV CONT (15:27)
[2022-06-19 17:39] LABS: Appearance Urine Clear (Clear); Bacteria Urine None Seen /hpf; Bilirubin Urine Negative (Negative); Blood Urine 1+ (Negative); Color Urine Yellow (Yellow); Glucose Urine UA Negative (Negative); Hyaline Casts Urine Present /lpf; Ketones Urine Trace mg/dL (Negative); Leukocyte Esterase Ur 2+ LEU/UL (Negative); Nitrate Urine Negative (Negative); Non Pathogenic Casts 0-2; Protein Urine Negative (Negative); Specific Grav Ur 1.022 (1.001-1.035); Squamous Epithelial Cell Urine None seen /hpf (Few); WBC Urine 21-50 /hpf
[2022-06-19 17:46] LABS: Add Urine Microscopic? YES
[2022-06-19] MEDS: diphenhydrAMINE HCl CAP 25 MG CAPSULE PO (21:11)
[2022-06-19] MEDS: ACETAMINOPHEN 325 MG TABLET PO (21:11)
[2022-06-20] VITALS (11 sets, daily range): BP systolic 114–151; BP diastolic 61–90; PULSE 60–131; RESP 11–19; TEMP 36.8–36.9; O2SAT 92–99
[2022-06-20 04:32] LABS: Hematocrit 40.6 % (42.0-52.0); Hemoglobin 13.4 g/dL (14.0-18.0); Immature Platelet Fraction Pct 3.9 % (0.9-11.2); Mean Corpuscular Hemoglobin 30.1 pg (26-34); Mean Corpuscular Volume 91.2 fl (80-100); Mean Platelet Volume 10.4 fl (7.4-10.4); Platelet Count Result 119 k/mm3 (150-375); Red Blood Count 4.45 M/mm3 (4.6-6.20); Red Cell Distribution Width 12.9 % (11.5-14.5); White Blood Count 6.9 K/mm3 (4.5-10.0)
[2022-06-20 04:49] LABS: Anion Gap 7 mmol/L (8-16); Blood Urea Nitrogen 21 mg/dL (9-20); Calcium 8.5 mg/dL (8.4-10.2); Carbon Dioxide 25 mmol/L (22-30); Chloride 106 mmol/L (98-107); Estimated CRCL calculation 44 ml/min; Estimated Glomerular Filt Rate > 60; Glucose 91 mg/dL (65-110); Magnesium 1.9 mg/dL (1.6-2.3); Sodium 138 mmol/L (137-145)
[2022-06-20] MEDS: ramipriL 5 MG CAPSULE 10 MG PO (08:20)
[2022-06-20] MEDS: ESCITALOPRAM OXALATE 10 MG TABLET 20 MG PO (08:20)
[2022-06-20] MEDS: hydroCHLOROthiazide 25 MG TABLET PO (08:21)
[2022-06-20] MEDS: buPROPion HCL XL (24 HR) 150 MG TABCR PO (08:21)
[2022-06-20] MEDS: ASPIRIN 81 MG CHEWABLE TABLET PO (08:32)
--- NOTE | 2022-06-20 11:25 | PM.PNCARD ---
Progress Note: A&P Assessment and Plan (1) AV heart block: Code(s): I44.30 - Unspecified atrioventricular block Status: Acute Assessment and Plan: Presenting with complaints of dizziness and near syncope as well as increased fatigue over the past couple of weeks. his EKG demonstrates 2:1 AVB with LBBB. A follow-up EKG continues to show the 2:1 AVB with RBBB. Underwent placement of PPM yesterday. Remove pacemaker check this morning showed normal functioning repeat CXR this afternoon Plan for discharge if CXR looks okay Outpatient follow up in one week Subjective Date/time seen: 06/20/22 11:25 Cardiology follow up for bradycardia He feels well this morning and has no complaints of any kind. Eager to go home. Review of Systems Review of Systems: All systems reviewed & are unremarkable except as noted in HPI and below Exam Const: General: comfortable, no acute distress, alert and awake Orientation/consciousness: patient oriented x3 HENMT: Head: normal to inspection Eyes: General: appearance normal, both eyes and all related structures Pupils: Equal, round and reactive pupils present Neck: Neck: normal visual inspection, supple and no JVD Carotids: normal carotid upstroke Resp: Effort & Inspection: normal respiratory effort Auscultation: clear to auscultation bilaterally Cardio: Rate: regular rate Rhythm: regular rhythm Heart sounds: S1 normal heart sound present, S2 normal heart sound present and Murmur heart sound present systolic I/ and at the apex Other: left pectoral incision free from bleeding. No hematoma. GI: Auscultation: normal bowel sounds Skin: General skin exam: normal color Neuro: General: patient oriented x3 Cranial nerves: Yes Equal, round and reactive pupils present Extrem: General: normal to inspection Psych: Appearance: grossly normal Mental Status: mental status grossly normal Objective Data Vital Signs Vital Signs: Vital Signs - 24 hr 06/19/22 12:00 06/19/22 12:00 06/19/22 12:00 Temperature 37.1 C Pulse Rate 37 L 38 L Respiratory Rate 16 Blood Pressure 149/79 H Pulse Oximetry 94 96 Oxygen Delivery Room Air 06/19/22 15:03 06/19/22 15:15 06/19/22 15:34 Temperature Pulse Rate 60 67 72 Respiratory Rate 18 15 16 Blood Pressure 124/109 H 137/78 105/90 Pulse Oximetry 96 94 93 Oxygen Delivery 06/19/22 16:00 06/19/22 16:12 06/19/22 16:00 Temperature 36.6 C Pulse Rate 65 66 Respiratory Rate 11 L Blood Pressure 130/62 Pulse Oximetry 95 95 Oxygen Delivery Room Air 06/19/22 16:00 06/19/22 17:00 06/19/22 16:30 Temperature Pulse Rate 69 69 61 Respiratory Rate 16 18 18 Blood Pressure 122/96 H 136/64 131/91 H Pulse Oximetry 96 94 95 Oxygen Delivery 06/19/22 18:00 06/19/22 18:00 06/19/22 20:00 Temperature Pulse Rate 67 67 62 Respiratory Rate 18 16 Blood Pressure 128/52 L Pulse Oximetry 93 93 Oxygen Delivery Room Air 06/19/22 20:00 06/19/22 22:00 06/19/22 20:00 Temperature 36.9 C Pulse Rate 60 64 65 Respiratory Rate 15 Blood Pressure 131/63 Pulse Oximetry 95 Oxygen Delivery 06/19/22 22:00 06/20/22 00:00 06/20/22 00:00 Temperature 36.9 C Pulse Rate 60 131 H 61 Respiratory Rate 12 17 17 Blood Pressure 143/60 H 123/90 Pulse Oximetry 93 99 94 Oxygen Delivery Room Air 06/20/22 00:00 06/20/22 02:00 06/20/22 02:00 Temperature Pulse Rate 63 67 63 Respiratory Rate 11 L Blood Pressure 143/72 H Pulse Oximetry 93 Oxygen Delivery 06/20/22 03:32 06/20/22 04:00 06/20/22 04:00 Temperature Pulse Rate 60 61 61 Respiratory Rate 19 13 Blood Pressure 114/77 Pulse Oximetry 92 93 Oxygen Delivery Room Air 06/20/22 06:00 06/20/22 06:00 06/20/22 07:42 Temperature 36.8 C Pulse Rate 60 60 72 Respiratory Rate 12 18 Blood Pressure 151/88 H Pulse Oximetry 96 92 Oxygen Delivery 06/20/22 08:00 06/20/22 08:00 06/20/22 10
--- NOTE | 2022-06-20 12:53 | WPDINTPN ---
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 Transcutaneous pacing pads are in place but he has not required any pacing till now. Electrolytes were unremarkable and he had no response to atropine 06/19/2022: Status post Implantation of permanent dual chamber pacemaker Troponins negative TSH normal Echo Summary ? 1. Left ventricular chamber dimension is normal. ? 2. Left ventricular systolic function is normal, estimated at 60-65%. ? 3. The left ventricular diastolic function is grade I diastolic dysfunction. ? 4. Right ventricular systolic function is normal. ? 5. There is mild aortic valve sclerosis. ? 6. There is mild aortic valve regurgitation. ? 7. There is mild to moderate mitral valve regurgitation. ? 8. There is moderate tricuspid valve regurgitation. ? 9. There is mild pulmonic regurgitation. ? 10. Pulmonary hypertension, estimated pulmonary arterial systolic pressure is 53 mmHg. (2) Essential hypertension: Code(s): I10 - Essential (primary) hypertension Status: Acute Assessment and Plan: Continue ramipril and hydrochlorothiazide. Also on p.r.n. hydralazine Echo as above Plan DVT prophylaxis - SCDs Nutrition -heart healthy diet Code Status: Full code Critical Care Time Spent: 32 minutes ?Due to a high probability of clinically significant, life threatening deterioration, the patient required my highest level of preparedness to intervene emergently and I personally spent this critical care time directly and personally managing the patient. This critical care time included obtaining a history; examining the patient; pulse oximetry; ordering and review of studies; arranging urgent treatment with development of a management plan; evaluation of patient's response to treatment; frequent reassessment; and discussions with other providers. It was exclusive of separately billable procedures and treating other patients and teaching time. Please see Assessment and Plan section and the rest of the note for further information on patient assessment and treatment This dictation may have been done utilizing a voice recognition system. Attempts have been made to correct errors. However, there may be uncorrected grammatical, spelling, and recognitions errors present. Subjective Date/time seen: 06/20/22 12:53 Interval history: Reason for consult: High degree AV block, essential hypertension 06/19/2022: Status post permanent dual-chamber pacemaker implantation 06/20/2022: Patient seen examined the ICU, is awake, alert, oriented. Hemodynamically stable, paced rhythm, afebrile, adequate urine output. Denies chest pain, shortness of breath, abdominal pain, nausea, vomiting Review of Systems Review of Systems: All systems reviewed & are unremarkable except as noted in HPI and below (HPI) Exam Narrative: General: Pt is alert awake and in NAD Lungs/Chest: Trachea central Clear BS B/L, No crackles or wheezing. Cardiac: Paced rhythm Circulation: Pedal pulses are intact and symmetrical. Abdomen: Normal bowel sounds.. Soft. NT. ND. Extremities: No clubbing, cyanosis or edema. Warm : Gaona in place Neurologic: Follows commands. Moves all 4 extremities PERRL AO x3 Skin: No Rash Objective Data Vital Signs Vital Signs: Vital Signs - 24 hr 06/19/22 15:03 06/19/22 15:15 06/19/22 15:34 Temperature Pulse Rate 60 67 72 Respiratory Rate 18 15 16 Blood Pressure 124/109 H 137/78 105/90 Pulse Oximetry 96 94 93 Oxygen Delivery 06/19/22 16:00 06/19/22 16:12 06/19/22 16:00 Temperature 97.8 F Pulse Rate 65 66 Respiratory Rate 11 L Blood Pressure 130/62 Pulse Oximetry 95 95 Oxygen Delivery Room Air 06/19/22 16:00 06/19/22 17:00 06/19/22 16:30 Temperature Pulse Rate 69 69 61
--- NOTE | 2022-06-20 15:58 | PM.DS ---
DS: Admitting Diagnosis Discharge Date 06/20/2022 Admitting Diagnosis Heart block DS: Discharge Diagnosis Discharge Diagnosis (1) AV heart block: Code(s): I44.30 - Unspecified atrioventricular block Status: Acute (2) Essential hypertension: Code(s): I10 - Essential (primary) hypertension Status: Acute DS: Summary Hospital Course Hospital Course: # symptomatic AV block: 2s to 1 stable blood pressure admitted to the ICU. Transcutaneous pacing pads were placed. Did not require pacing. Electrolytes unremarkable. No response to atropine. 06/19/2022 status post implantation of permanent dual-chamber pacemaker Troponin is negative TSH normal Echo with normal EF 60-65% grade 1 diastolic dysfunction [id number] mitral valve regurgitation moderate tricuspid valve regurgitation mild pulmonary regurgitation pulmonary hypertension 53 mm Hg. # hypertension continued on ramipril and hydrochlorothiazide # code status full code Time Spent with Patient Time attestation: Total time spent providing and/or coordinating discharge services: 45 minutes Exam Narrative: General: Pt is alert awake and in NAD Lungs/Chest: Trachea central Clear BS B/L, No crackles or wheezing. Left chest wall with dressing in place Cardiac: Paced rhythm; S1-S2 heard Circulation: Pedal pulses are intact and symmetrical. Abdomen: Normal bowel sounds.. Soft. NT. ND. Extremities: No clubbing, cyanosis or edema. Warm : Gaona in place Neurologic: Follows commands. Moves all 4 extremities PERRL AO x3 Skin: No Rash DS: Data Data Completed and Pending Labs on day of discharge: Labs from last 24 hours 06/20/22 06/20/22 06/19/22 04:23 04:23 17:15 WBC 6.9 RBC 4.45 L Hgb 13.4 L Hct 40.6 L MCV 91.2 MCH 30.1 MCHC 33.0 RDW 12.9 Plt Count 119 L MPV 10.4 % Immature Plt Fraction 3.9 Sodium 138 Potassium 4.0 Chloride 106 Carbon Dioxide 25 Anion Gap 7 L BUN 21 H Creatinine 1.10 Estim Creat Clear Calc 44 Estimated GFR > 60 Glucose 91 Calcium 8.5 Magnesium 1.9 Urine Color Yellow Urine Appearance Clear Urine pH 6.0 Ur Specific [place] 1.022 Urine Protein Negative Urine Glucose (UA) Negative Urine Ketones Trace Ur Blood (Man) 1+ H Urine Nitrate Negative Urine Bilirubin Negative Urine Urobilinogen 1.0 Leukocyte Esterase Rfl 2+ H Urine RBC 11-20 H Urine WBC 21-50 H Ur Squamous Epith Cells None seen Urine Bacteria None seen Urine Casts 0-2 Hyaline Casts Present Procedures/Treatments: Cardiac Cath Procedure Note Date of procedure:: 06/19/22 Performing physician:: Modesto Rodgers MD Indication:: High-grade AV block with trifascicular disease Brief clinical history:: This is an 82-year-old man with symptomatic bradycardia he has evidence of high-grade AV block including some evidence of 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 Procedure Procedure performed:: Implantation of permanent dual-chamber pacemaker Sedation/Medication given:: Fentanyl 50 mg Versed 2 mg Access site:: Left anterior chest wall left subcu Estimated blood loss:: 25 CC Procedure note:: Patient was brought to the cardiac catheterization lab in the postabsorptive state where the left anterior chest wall was prepped and draped in the usual fashion.? Anesthesia was infiltrated with 1% lidocaine a below the clavicle.? Following this an incision was made from the midclavicular line to the deltopectoral groove about 1 in below the clavicle.? The patient had electrocautery used to provide cutaneous hemostasis.? Using sharp and blunt dissection the subcutaneous tissue was dissected to the level of the prepectoral fascia.? Using blunt dissection a pacemaker pocket was then created inferior to the incision.? This was packed with antibiotic soaked 4 x 4.? Attention was then turned to venous access.
== END 2022-06-20 16:53 | disposition home or self-care (01) | DRG 244 ==
LOC: ANHED 17:07 → ANHICU 18:42
PROVIDERS: Emergency Medicine; Internal Medicine; Nurse Practitioner; Specialist; Admitting Provider Student in an Organized Health Care Education/Training Program; Emergency Provider General Practice; PCP Internal Medicine; Visit Provider Internal Medicine
PROC: 0JH606Z Insertion of Pacemaker, Dual Chamber into Chest Subcutaneous Tissue and Fascia, Open Approach (ICD-10-PCS; CPT 33208; principal; 2022-06-19 14:00)
DX: I44.2 Atrioventricular block, complete (principal); I45.3 Trifascicular block; R00.1 Bradycardia, unspecified; I10 Essential (primary) hypertension; M19.90 Unspecified osteoarthritis, unspecified site; F32.A Depression, unspecified; Z87.891 Personal history of nicotine dependence
CPT/HCPCS: 33208; 36415; 71045; 71046; 80048; 80053; 81001; 83690; 83735; 84443; 84484; 85025; 85027; 85055; 85610; 85730; 87086; 87088; 93005; 96374; 96375; 99285; A9270; C1779; C1785; C8929; G0378; J0461; J0690; J2250; J3010; J7030; J7040; Q9957